=== PATIENT | female | born 1945 | race Caucasian/White ===

== ENCOUNTER 2020-11-03 17:01 | Outpatient (CLI) | payer MEDICARE, BC | END 2020-11-03 17:02 | disposition home or self-care (01) | LOC: COV 17:01 | PROVIDERS: ATTEND Family Medicine | DX: Z20.822 Contact with and (suspected) exposure to COVID-19 (principal) ==

== ENCOUNTER 2021-09-12 17:43 | Outpatient (CLI) | payer MEDICARE, BC ==
--- NOTE | 2021-09-12 10:50 | XRAY Report ---
PROCEDURE: Chest 2 View X-Ray INDICATIONS: HYPOXIA WITH ACUTE COUGH TECHNIQUE: 2 view(s) of the chest. COMPARISON: None. FINDINGS: Surgical changes and devices: None. Lungs and pleura: No pleural effusions or pneumothorax. Lungs are clear. Mediastinum: Mediastinal contours are normal. Heart size is normal. Bones and chest wall: No suspicious bony abnormalities. Soft tissues appear unremarkable. Convex ri ght thoracic scoliosis IMPRESSION: No acute cardiopulmonary findings Reviewed by: Carlos Osullivan MD on 09/12/2021 9:49 AM MIGUEL Approved by: Carlos Osullivan MD on 09/12/2021 9:49 AM MIGUEL Station ID: [id number]
== END 2021-09-12 17:44 | disposition home or self-care (01) ==
LOC: DI.S 17:43
PROVIDERS: ATTEND Registered Nurse
DX: R05.1 Acute cough (principal); R09.02 Hypoxemia; R50.9 Fever, unspecified; Z20.822 Contact with and (suspected) exposure to COVID-19
CPT/HCPCS: 71046; U0004

== ENCOUNTER 2022-01-21 08:00 | Outpatient (CLI) | payer MEDICARE, BC ==
[2022-01-25 16:08] LABS: OVA + PARASITE EXAM Final report (.)
== END 2022-01-21 23:59 | disposition home or self-care (01) ==
LOC: LAB 08:00
PROVIDERS: ATTEND Physician Assistant
DX: R19.5 Other fecal abnormalities (principal)
CPT/HCPCS: 87045; 87046; 87177; 87427

== ENCOUNTER 2022-03-23 14:22 | Outpatient (CLI) | payer BC, MEDICARE ==
--- NOTE | 2022-03-23 16:32 | DEXA Report ---
PROCEDURE: Dexa Spine and/or Hip INDICATIONS: POST MENOPAUSAL TECHNIQUE: Dual energy x-ray absorptiometry (DXA) was performed on a [employer] System. Regions measur ed are the AP Spine, femoral neck, and if needed forearm. COMPARISON: None. FINDINGS: Lumbar Spine: Bone Mineral Density 0.96 g/cm/cm,T score -1.9, osteopenia Left Femoral Neck: Bone Mineral Density 0.97 g/cm/cm, T score -0.30, normal bone density Impression: 1. Lumbar spine osteopenia. 2. Normal left hip bone density. Patients with diagnosis of osteoporosis or osteopenia should have regular bone mineral density assess ment. For those eligible for Medicare, routine testing is allowed once every 2 years. Testing frequ ency can be increased for patients who have rapidly progressing disease or for those who are receivin g medical therapy to restore bone mass. Reviewed by: Judson Celaya MD on 03/23/2022 4:31 PM PST Approved by: Judson Celaya MD on 03/23/2022 4:31 PM PST Station ID: [id number]
== END 2022-03-23 14:23 | disposition home or self-care (01) ==
LOC: DI 14:22
PROVIDERS: ATTEND Nurse Practitioner Family
DX: M85.88 Other specified disorders of bone density and structure, other site (principal); Z78.0 Asymptomatic menopausal state

== ENCOUNTER 2022-07-18 10:29 | Outpatient (CLI) | payer MEDICARE ==
--- NOTE | 2022-07-18 11:02 | XRAY Report ---
PROCEDURE: Knee 3 View LT INDICATIONS: PAIN OF LEFT KNEE JOINT TECHNIQUE: 3 views of the left knee(s) were acquired. COMPARISON: None. FINDINGS: Bones: No fractures or dislocations. No suspicious bony lesions. Tricompartmental joint space beata rowing with associated osteophytosis. Soft tissues: No knee joint effusion. No suspicious soft tissue calcifications or masses. IMPRESSION: No acute bony abnormality. Tricompartmental Kellgren-Miller scale of osteoarthritis: Grade 1-2: mild osteoarthritis. Reviewed by: José Luis Louie on 07/18/2022 11:01 AM PDT Approved by: José Luis Louie on 07/18/2022 11:01 AM PDT Station ID: [id number]
== END 2022-07-18 10:30 | disposition home or self-care (01) ==
LOC: DI.S 10:29
PROVIDERS: ATTEND Physician Assistant
DX: M17.12 Unilateral primary osteoarthritis, left knee (principal)

== ENCOUNTER 2023-10-07 07:00 | Outpatient (CLI) | payer MEDICARE ==
--- NOTE | 2023-10-07 23:34 | XRAY Report ---
PROCEDURE: Knee 2V LT INDICATIONS: LEFT KNEE PAIN TECHNIQUE: 2 views of the knee(s) were acquired. COMPARISON: 07/18/2022. FINDINGS: Bones: No fractures or dislocations. Mild to moderate tricompartmental osteoarthritis is seen most n otably in medial femoral tibial compartment. No suspicious bony lesions. Soft tissues: Small to moderate knee joint effusion. No suspicious soft tissue calcifications or mas ses. IMPRESSION: Persistent mild to moderate tricompartmental osteoarthritis most notably in medial femoral tibial com partment unchanged or slightly progressed compared to 2022 study. No acute fracture or dislocation. S mall to moderate suprapatellar joint effusion. Reviewed by: Candido Leon MD on 10/07/2023 11:33 PM PDT Approved by: Candido Leon MD on 10/07/2023 11:33 PM PDT Station ID: [id number]
== END 2023-10-07 23:59 | disposition home or self-care (01) ==
LOC: DI.S 07:00
PROVIDERS: ATTEND Nurse Practitioner
DX: M17.12 Unilateral primary osteoarthritis, left knee (principal); M25.462 Effusion, left knee